=== PATIENT | female | born 1975 | race Native Hawaiian/Other Pacific Islander ===

== ENCOUNTER 2017-07-11 08:34 | Outpatient (CLI) | payer BC | END 2017-07-11 10:00 | disposition home or self-care (01) | LOC: MRI 08:34 | DX: M54.5 Low back pain (principal) | CPT/HCPCS: A9576 ==

== ENCOUNTER 2017-10-27 10:57 | Outpatient (CLI) | payer BC | END 2017-10-27 19:21 | disposition home or self-care (01) | LOC: MAMMO 10:57 | DX: Z12.31 Encounter for screening mammogram for malignant neoplasm of breast (principal) ==

== ENCOUNTER 2019-06-07 15:45 | Outpatient (CLI) | payer BC | END 2019-06-07 20:01 | disposition home or self-care (01) | LOC: MAMMO 15:45 | DX: Z12.31 Encounter for screening mammogram for malignant neoplasm of breast (principal) ==

== ENCOUNTER 2021-03-03 09:17 | Outpatient (CLI) | payer BC | END 2021-03-03 22:04 | disposition home or self-care (01) | LOC: MAMMO 09:17 | PROVIDERS: ATTEND Obstetrics & Gynecology | DX: Z12.31 Encounter for screening mammogram for malignant neoplasm of breast (principal) ==

== ENCOUNTER 2021-11-17 15:09 | Outpatient (CLI) | payer BC | END 2021-11-17 19:22 | disposition home or self-care (01) | LOC: US 15:09 | PROVIDERS: ATTEND Nurse Practitioner Family | DX: N64.4 Mastodynia (principal); T85.49XA Other mechanical complication of breast prosthesis and implant, initial encounter ==

== ENCOUNTER 2022-03-19 15:12 | Outpatient (CLI) | payer BC | END 2022-03-19 20:30 | disposition home or self-care (01) | LOC: MAMMO 15:12 | PROVIDERS: ATTEND Obstetrics & Gynecology | DX: Z12.31 Encounter for screening mammogram for malignant neoplasm of breast (principal) ==